=== PATIENT | female | born 1995 | race Caucasian/White ===

== ENCOUNTER 2020-10-06 09:32 | Emergency (ER) | payer OTHER, SELFPAY ==
--- NOTE | ~2020-10-06 | XR_ITS ---
EXAMINATION: XR CHEST CLINICAL INFORMATION: Chest pain COMPARISON: None TECHNIQUE: 2 views of the chest were obtained. FINDINGS: No significant abnormality is noted involving the heart, lungs, mediastinum, bony thorax or soft tissues. XR/XR chest 2V IMPRESSION: Unremarkable examination.
[2020-10-06 09:38] VITALS: BP 146/99; PULSE 130; RESP 18; TEMP 37.2; O2SAT 98; BMI 23.8
--- NOTE | 2020-10-06 10:08 | ECG_ITS ---
Test Reason : DYSPNEA Blood Pressure : / mmHG Vent. Rate : 097 BPM Atrial Rate : 097 BPM P-R Int : 166 ms QRS Dur : 092 ms QT Int : 368 ms P-R-T Axes : 036 041 010 degrees QTc Int : 467 ms Normal sinus rhythm Normal ECG No previous ECGs available Referred By: Shane Paul Electronically Signed By:LUCHO PRESTON MD
--- NOTE | 2020-10-06 10:10 | ED_ITS ---
HPI - General Adult General Chief complaint: Dyspnea Stated complaint: SOB Time Seen by Provider: 10/06/20 09:51 Source: patient Mode of arrival: ambulatory Limitations: no limitations History of Present Illness HPI narrative: 25-year-old female who presents emergency department for evaluation of palpitations, lightheadedness, dizziness, anxiety attack, insomnia. The patient states that she is being treated for anxiety, depression and insomnia. She states that she was on Seroquel 1 month prior, 50 mg at night which helped her anxiety but made her very sleepy. This medication was stopped and she was started another medication which patient could not tolerate. She was started back on Seroquel 12.5 mg which she took 2 days prior. She states that over the past 48 hours she has had palpitations where she states that her heart is racing and she skips beats. She states she is feeling lightheaded, dizzy, she has tingling in her hands and feet. She states she feels like she is going to pass out. She has had nausea and vomiting has not been able to hold down food or fluid for the past 24 hours. She states she has had no sleep over the past 24 hours. She states that she has a constant, pressure-like sensation in her chest, she points to her anterior chest when asked to localize the pain. Pain is moderate intensity. She feels hot and cold. When I was talking to her she states that her vision was going gomes and she felt like she was going to pass out. She states that she has felt like this in the past when she has had panic attacks. Related Data Previous Rx's Medication Instructions Recorded hydroxyzine pamoate [Vistaril] 50 mg PO TID PRN #20 cap 10/06/20 Allergies Allergy/AdvReac Type Severity Reaction Status Date / Time No Known Allergies Allergy Verified 10/06/20 10:07 Review of Systems Review of Systems: Yes all other systems are reviewed and are negative FOR[facility]LY [facility], [facility] Past Medical History FOR[facility], [facility] Narrative: Past medical history: Hypertension, hyperlipidemia, asthma, depression, anxiety, insomnia. Past surgical history: Wrist surgery, bilateral tubal ligation. Social history: The patient is a smoker but she states she stopped 2 days prior. She denies alcohol use. She does smoke marijuana daily. Social History Social History Advance Directives: No Advance Directives Information Provided: No Patient : No Physical Exam Vital Signs: Vital Signs: Last Vital Signs Temp 99 F 10/06/20 09:38 Pulse 90 10/06/20 10:27 Resp 15 10/06/20 10:27 BP 132/83 10/06/20 10:27 Pulse Ox 99 10/06/20 10:27 Body Mass Index 23.8 Const: General: cooperative and anxious Orientation/consciousness: oriented to person and oriented to place Limitations: no limitations HENMT: Head: Yes normal to inspection, Yes normocephalic and Yes atraumatic Ears: external ears normal General nose exam: Normal external nose present Face and sinus: Yes normal facial exam Mouth: Normal oral and palatal mucosa present Throat: Yes posterior oropharynx normal Eyes: Periorbital: periorbital findings normal Eyelids: Yes eyelids normal Conjunctivae: conjunctivae normal Sclerae: sclerae normal Corneas: corneas normal Pupils: Equal, round and reactive pupils present Direct Ophthalmoscopy: normal light reflex Neck: Neck: Yes full ROM, Yes no lymphadenopathy, Yes no meningeal signs, Yes trachea midline and Yes supple Chest: Chest palpation & inspection: normal inspection of the chest and normal palpation of entire chest wall Resp: Effort & Inspection: normal respiratory effort and able to speak in complete sentences Auscultation: clear to auscultation bilaterally Cardio: Rate: tachycardic Rhythm: regular rhythm Heart sounds: S1 normal heart sound present, S2 normal heart sound present and no murmurs GI: Inspection: Yes normal to inspection Palpation (GI): Soft to palpation, nontender, no guarding, not rigid and No hepatosplenomegaly present : General: Yes no CVA tenderness Back/Spine/Pelvis: Back: no CVA tenderness Cervical Spine: normal cervical lordosis Thoracic/Lumbar Spine: thoracic and lumbar spine normal to inspection Skin: Lesions: no lesions Rashes: no rashes Wounds: no wounds Neuro: General: oriented to person, oriented to place and no meningeal signs Cranial nerves: Yes CN's II-XII intact bilaterally and Yes Equal, round and reactive pupils present Cognition (Neuro): normal cognition Motor exam (neuro): 5/5 motor strength present throughout Extrem: General: Yes normal to inspection and Yes full ROM Psych: Appearance: well kempt Mental Status: mental status grossly normal Speech and movement: Normal speech and movement present Affect: Anxious affect present Attitude: cooperative Thought process: Normal thought process present Thought content: Normal thought content present Course Course Course Narrative: 25-year-old female who presents emergency department for evaluation of palpitations, chest pain, anxiety, insomnia, nausea and vomiting. The patient has a provider that is treating her for anxiety, depression and insomnia and she has had recent medication changes over the past month. She was started back on a low dose of Seroquel 12.5 mg at night 2 nights prior and since that time her symptoms have gotten worse and she has developed nausea and vomiting and unable to hold down food or fluid for 24 hours. Vital signs revealed that she was hypertensive and tachycardic with a blood pressure of 146/99 and pulse of 130. She appears to be extremely anxious otherwise exam was unremarkable. I ordered a CBC, CMP, troponin, chest x-ray and EKG. Patient was ordered to get Ativan 2 mg IV for her anxiety and normal saline x1 L. 1254: The patient got minimal improvement with the IV Ativan, she states that just made her sleepy. Patient's laboratory evaluation is unremarkable including a nondetectable high sensitivity troponin and a normal TSH. Chest x-ray was normal. Twelve EKG was normal. Patient's presentation is consistent with acute anxiety/panic attack. I did discuss this with the patient. I told her that she should continue taking his Seroquel and talk to her doctor about gradually increasing this dose. The patient was given a prescription for Vistaril 25 mg every 6 hours as needed for anxiety. She was given printed and verbal instructions on anxiety and discharged home. Medical Decision Making Lab Data Result diagrams: 10/06/20 10:41 10/06/20 10:41 Labs: Lab Results 10/06/20 10/06/20 10/06/20 Range/Units 10:41 10:41 10:41 WBC 10.0 (4.8-10.8) X10*3/uL RBC 4.60 (4.20-5.50) X10*6/uL Hgb 14.5 (12.0-16.0) g/dl Hct 42.2 (37-47) % MCV 91.7 (80-98) fL MCH 31.5 (27.0-33.0) pg MCHC 34.4 (31.0-35.0) g/dl RDW 12.0 (11.0-16.0) % Plt Count 320 (160-400) X10*3/uL MPV 10.1 (9.4-12.3) fL Immature Gran % (Auto) 0.3 (0.0-0.4) % Neut % (Auto) 79.5 H (45-73) % Lymph % (Auto) 12.9 L (20-40) % [place] % (Auto) 6.9 (2-11) % Eos % (Auto) 0.2 (0-4) % Baso % (Auto) 0.2 (0-2) % Lymph # (Auto) 1.3 (1.2-4.9) X10*3/uL [place] # (Auto) 0.7 (0.1-1.2) X10*3/uL Eos # (Auto) 0.0 (0.0-0.4) X10*3/uL Baso # (Auto) 0.0 (0.0-0.2) X10*3/uL Abs Immat Gran (auto) 0.03 (0.00-0.03) X10*3/uL Absolute Neuts (auto) 8.0 (2.0-8.3) X10*3/uL Absolute Nucleated RBC 0.000 (0.0-0.012) X10*3/uL Nucleated RBC % (auto) 0.0 (0.0-0.2) /100WBC Sodium 139 (135-145) mmol/L Potassium 3.4 (3.3-5.1) mmol/L Chloride 107 (96-108) mmol/L Carbon Dioxide 21 L (22-29) mmol/L Anion Gap 14 (12-20) BUN 8 L (9-16) mg/dL Creatinine 0.72 (0.5-1.4) mg/dL Estim Creat Clear Calc 109.8 Estimated GFR > 60 Random Glucose 117 H (60-115) mg/dL Calcium 9.6 (8.4-10.2) mg/dL Total Bilirubin 0.6 (0.0-1.0) mg/dL AST 14 (5-31) U/L ALT 19 (0-31) U/L Alkaline Phosphatase 83 (39-117) U/L Troponin I High Sens < 3.5 (<3.5-17.0) ng/L Total Protein 8.1 H (6.5-8.0) g/dL Albumin 5.0 (3.5-5.0) g/dL TSH (0.32-4.0) uIU/mL 10/06/20 Range/Units 10:41 WBC (4.8-10.8) X10*3/uL RBC (4.20-5.50) X10*6/uL Hgb (12.0-16.0) g/dl Hct (37-47) % MCV (80-98) fL MCH (27.0-33.0) pg MCHC (31.0-35.0) g/dl RDW (11.0-16.0) % Plt Count (160-400) X10*3/uL MPV (9.4-12.3) fL Immature Gran % (Auto) (0.0-0.4) % Neut % (Auto) (45-73) % Lymph % (Auto) (20-40) % [place] % (Auto) (2-11) % Eos % (Auto) (0-4) % Baso % (Auto) (0-2) % Lymph # (Auto) (1.2-4.9) X10*3/uL [place] # (Auto) (0.1-1.2) X10*3/uL Eos # (Auto) (0.0-0.4) X10*3/uL Baso # (Auto) (0.0-0.2) X10*3/uL Abs Immat Gran (auto) (0.00-0.03) X10*3/uL Absolute Neuts (auto) (2.0-8.3) X10*3/uL Absolute Nucleated RBC (0.0-0.012) X10*3/uL Nucleated RBC % (auto) (0.0-0.2) /100WBC Sodium (135-145) mmol/L Potassium (3.3-5.1) mmol/L Chloride (96-108) mmol/L Carbon Dioxide (22-29) mmol/L Anion Gap (12-20) BUN (9-16) mg/dL Creatinine (0.5-1.4) mg/dL Estim Creat Clear Calc Estimated GFR Random Glucose (60-115) mg/dL Calcium (8.4-10.2) mg/dL Total Bilirubin (0.0-1.0) mg/dL AST (5-31) U/L ALT (0-31) U/L Alkaline Phosphatase (39-117) U/L Troponin I High Sens (<3.5-17.0) ng/L Total Protein (6.5-8.0) g/dL Albumin (3.5-5.0) g/dL TSH 0.49 (0.32-4.0) uIU/mL Discharge Plan Discharge Clinical Impression: Palpitation, Panic attack Patient Disposition: Home, Self-Care Instructions: Anxiety (ED) Additional Instructions: We laboratory evaluation was normal. Your EKG was normal. Your chest x-ray was normal as well. Your symptoms are consistent with stress, anxiety and depression. Continue taking her Seroquel and discuss with your provider increasing the dose gradually to a more therapeutic dose. Take Vistaril (hydroxyzine) 50 mg, 1 pill every 6 hours as needed for anxiety. Follow-up with your prescribing provider in 2 days discuss further management of your anxiety. Please return to the emergency department if your symptoms get worse or if you develop any symptoms that are concerning to you. Prescriptions: New hydroxyzine pamoate [Vistaril] 50 mg capsule 50 mg PO TID PRN (Reason: anxiety) Qty: 20 RF: 0
[2020-10-06 10:27] VITALS: BP 132/83; PULSE 90; RESP 15; O2SAT 99
[2020-10-06 10:45] LABS: MANUAL DIFF FLAG NO
[2020-10-06] MEDS: 0.9 % Sodium Chloride 1,000 ML 999 ML IV (10:46)
[2020-10-06] MEDS: LORazepam 2 MG/ML VIAL IVPUSH (10:47)
[2020-10-06 10:48] LABS: Basophils Percent Auto 0.2 % (0-2); Eosinophils Percent Auto 0.2 % (0-4); Hematocrit 42.2 % (37-47); Hemoglobin 14.5 g/dl (12.0-16.0); Imm Gran Abs Auto 0.03 X10*3/uL (0.00-0.03); Imm Gran Pct Auto 0.3 % (0.0-0.4); Lymphocytes Absolute Auto 1.3 X10*3/uL (1.2-4.9); Lymphocytes Percent Auto 12.9 % (20-40); Mean Corpuscular HGB Conc 34.4 g/dl (31.0-35.0); Mean Corpuscular Hemoglobin 31.5 pg (27.0-33.0); Mean Corpuscular Volume 91.7 fL (80-98); Mean Platelet Volume 10.1 fL (9.4-12.3); Monocytes Absolute Auto 0.7 X10*3/uL (0.1-1.2); Monocytes Percent Auto 6.9 % (2-11); Neutrophils Percent Auto 79.5 % (45-73); Platelet Count 320 X10*3/uL (160-400)
[2020-10-06 11:11] LABS: Alanine Aminotransferase 19 U/L (0-31); Alkaline Phosphatase 83 U/L (39-117); Anion Gap 14 (12-20); Aspartate Amino Transferase 14 U/L (5-31); Bilirubin Total 0.6 mg/dL (0.0-1.0); Blood Urea Nitrogen 8 mg/dL (9-16); Calcium 9.6 mg/dL (8.4-10.2); Carbon Dioxide 21 mmol/L (22-29); Chloride 107 mmol/L (96-108); Creatinine Clr Calc Pharmacy 109.8; Estimated Glomerular Filt Rate > 60; Glucose Random 117 mg/dL (60-115); Potassium 3.4 mmol/L (3.3-5.1); Sodium 139 mmol/L (135-145); Total Protein 8.1 g/dL (6.5-8.0)
[2020-10-06 11:14] LABS: Troponin-I High Sensitivity < 3.5 ng/L (<3.5-17.0)
[2020-10-06 11:31] LABS: TSH reflex Free T4 0.49 uIU/mL (0.32-4.0)
[2020-10-06 12:00] VITALS: BP 153/83; PULSE 100; O2SAT 97
== END 2020-10-06 13:20 | disposition home or self-care (01) ==
PROVIDERS: Emergency Provider Emergency Medicine Emergency Medical Services; PCP Internal Medicine
DX: F41.0 Panic disorder [episodic paroxysmal anxiety] (principal); R11.2 Nausea with vomiting, unspecified; G47.00 Insomnia, unspecified; F32.9 Major depressive disorder, single episode, unspecified; Z79.899 Other long term (current) drug therapy
CPT/HCPCS: 36415; 71046; 80053; 84443; 84484; 85025; 93005; 96361; 96374; 99284; J2060

== ENCOUNTER 2020-10-09 14:51 | Emergency (ER) | payer OTHER, SELFPAY ==
[2020-10-09 15:01] VITALS: BP 125/86; PULSE 96; RESP 16; TEMP 36.9; O2SAT 96; BMI 22.6
--- NOTE | 2020-10-09 15:21 | ED_ITS ---
HPI - General Adult General Chief complaint: Skin/Abscess/Foreign Body <TYREL Vann - Last Filed: 10/09/20 15:49> Stated complaint: left leg rash <TYREL Vann Last Filed: 10/09/20 15:49> Time Seen by Provider: 10/09/20 15:06 <TYREL Vann Last Filed: 10/09/20 15:49> Source: patient <TYREL Vann Last Filed: 10/09/20 15:49> Mode of arrival: ambulatory <TYREL Vann Last Filed: 10/09/20 15:49> History of Present Illness HPI narrative: 25-year-old female with multiple psychiatric illnesses presenting to the emergency department with concerns for rash. She states that her psychiatrist has been changing her medications recently. She was initially started on ol anzapine and then switched to Seroquel and now switched to lamotrigine. She has taken a total of 2 doses of lamotrigine 1 yesterday at 15:00 and 1 at 07:00 this morning. Since 13:00 she has noticed a rash to her left leg. She was concerned for Abdelrahman Cleveland syndrome because her psychiatrist told her if she would have a rash it could be due to this. She denies going anywhere, hiking, recent tr malia. She states she has been in her bed. She does admit to having 2 dogs and 2 cats. She has been having episodes of vomiting and diarrhea but attributed to her medication changes otherwise feels okay. She denies fevers. She denies changes in soaps, perfumes, detergents, foods. No one else at home has a similar rash. The rash is not painful or itchy. She did use calamine lotion to see if it would help make the rash go away. <TYREL Vann Last Filed: 10/09/20 15:49> Related Data Home medications: Previous Rx's Medication Instructions Recorded hydroxyzine pamoate [Vistaril] 50 mg PO TID PRN #20 cap 10/06/20 <TYREL Vann Last Filed: 10/09/20 15:49> Allergies/adverse reactions: Allergies Allergy/AdvReac Type Severity Reaction Status Date / Time No Known Allergies Allergy Verified 10/06/20 10:07 <TYREL Vann - Last Filed: 10/09/20 15:49> Review of Systems Constitutional: Constitutional: Denies fever(s) <TYREL Vann - Last Filed: 10/09/20 15:49> Eyes: Eyes: Reports no additional eye complaints <TYREL Vann - Last Filed: 10/09/20 15:49> ENT: Denies nasal congestion and Denies sore throat <TYREL Vann - Last Filed: 10/09/20 15:49> Cardiovascular: Cardiovascular: Denies chest pain and Denies dyspnea <TYREL Vann - Last Filed: 10/09/20 15:49> Respiratory: Respiratory: Denies dyspnea <TYREL Vann - Last Filed: 10/09/20 15:49> Gastrointestinal: Gastrointestinal: Denies abdominal pain, Reports diarrhea and Reports vomiting <TYREL Vann - Last Filed: 10/09/20 15:49> Musculoskeletal: Musculoskeletal: Denies joint swelling <TYREL Vann - Last Filed: 10/09/20 15:49> Integumentary/Breasts: Skin/Breast: Reports rash <TYREL Vann - Last Filed: 10/09/20 15:49> Psychiatric: Psychiatric: Reports anxiety <TYREL Vann - Last Filed: 10/09/20 15:49> Hematologic/Lymphatic: Hematologic/Lymphatic: Denies easy bleeding <TYREL Maier - Last Filed: 10/09/20 15:49> [facility] Past Medical History Medical History: Medical History Asthma Ganglion cyst High cholesterol HTN (hypertension) <TYREL Vann - Last Filed: 10/09/20 15:49> Surgical History: Surgical History (Updated 10/09/20 @ 15:06 by Sharon Hawkins) History of tubal ligation <TYREL Vann - Last Filed: 10/09/20 15:49> Social History Social History: Social History Advance Directives: No Advance Directives Information Provided: No Patient : No <TYREL Vann - Last Filed: 10/09/20 15:49> Physical Exam Vital Signs: Vital Signs: Last Vital Signs Temp 98.4 F 10/09/20 15:01 Pulse 96 10/09/20 15:01 Resp 16 10/09/20 15:01 BP 125/86 10/09/20 15:01 Pulse Ox 96 10/09/20 15:01 Body Mass Index 22.6 <TYREL Vann - Last Filed: 10/09/20 15:49> Vital Signs: Last Vital Signs Temp 98.4 F 10/09/20 15:01 Pulse 96 10/09/20 15:01 Resp 16 10/09/20 15:01 BP 125/86 10/09/20 15:01 Pulse Ox 96 10/09/20 15:01 Body Mass Index 22.6 <Abdelrahman Nelson MD - Last Filed: 11/17/20 08:47> Const: Other: sitting upright , friend at bedside <TYREL Vann - Last Filed: 10/09/20 15:49> Orientation/consciousness: patient oriented x3 <TYREL Vann - Last Filed: 10/09/20 15:49> HENMT: Other: No oral lesions <TYREL Vann - Last Filed: 10/09/20 15:49> Head: Yes atraumatic <TYREL Vann - Last Filed: 10/09/20 15:49> Eyes: Pupils: Equal, round and reactive pupils present <TYREL Vann - Last Filed: 10/09/20 15:49> Neck: Neck: Yes supple <TYREL Vann - Last Filed: 10/09/20 15:49> Resp: Effort & Inspection: normal respiratory effort and able to speak in complete sentences <TYREL Vann - Last Filed: 10/09/20 15:49> Cardio: Rate: regular rate <TYREL Vann - Last Filed: 10/09/20 15:49> GI: Inspection: No distended <TYREL Vann - Last Filed: 10/09/20 15:49> Skin: Other: Eight isolated papules to her left distal tib-fib extending to her left heel, no surrounding erythema, no pus drainage, nontender to touch, no vesicular rash, no petechia, palms are spared, no oral lesions <TYREL Vann - Last Filed: 10/09/20 15:49> Neuro: General: patient oriented x3 <TYREL Vann - Last Filed: 10/09/20 15:49> Cranial nerves: Yes Equal, round and reactive pupils present <TYREL Vann Last Filed: 10/09/20 15:49> Extrem: General: Yes full ROM <TYREL Vann Last Filed: 10/09/20 15:49> Psych: Appearance: grossly normal <TYREL Vann Last Filed: 10/09/20 15:49> Course Course Course Narrative: I have reviewed the chart <Abdelrahman Nelson MD - Last Filed: 11/17/20 08:47> Medical Decision Making [facility] Narrative Medical decision making narrative: 25-year-old female presenting to emergency department with concerns for rash, concern it might be even Cleveland syndrome since she started lamotrigine yesterday Vital stable, nontoxic appearing, hemodynamically stable Rash is not consistent with Kimble-Cleveland syndrome. No meningeal signs. No evidence of zoster. Does not appear herpetic. No surrounding or superimposed cellulitis. Does not appear allergic, no signs of respiratory distress, no wheezing or stridor. Rash is not petechial to suggest underlying liver dysfunction. NO evidence of necrotizing fascitis. Patient does have multiple pets in the house and could be sore and be due to flea bites. No bull's eye rash to suggest Lyme. She has a follow-up appoint with her psychiatrist tomorrow morning. She states if she can get something for her anxiety to get her through tomorrow. She was recently in the ER and prescribed hydroxyzine which I advised her to continue taking. Will not add any additional medications. Return precautions discussed. <TYREL Vann Last Filed: 10/09/20 15:49> Discharge Plan Discharge Clinical Impression: Rash <TYREL Vann - Last Filed: 10/09/20 15:49> Patient Disposition: Home, Self-Care <TYREL Vann - Last Filed: 10/09/20 15:49> Instructions: Acute Rash (ED) <TYREL Vann - Last Filed: 10/09/20 15:49> Additional Instructions: Please follow-up with your psychiatrist as scheduled tomorrow. Please return if the rash worsens, worsening redness, leg swelling, fevers, lesions or rash in your mouth, dizziness, weakness, or any other concerning symptom. Avoid new foods, detergents or soaps. Please check your pants for any ticks or fleas because fleas can also cause a similar rash. Continue your medications as instructed by your psychiatrist. <TYREL Vann - Last Filed: 10/09/20 15:49> Prescriptions: No Action hydroxyzine pamoate [Vistaril] 50 mg capsule 50 mg PO TID PRN (Reason: anxiety) Qty: 20 RF: 0 <TYREL Vann - Last Filed: 10/09/20 15:49> Interventions: ED Discharge Assessment Last Done: 10/09/20 15:31 <TYREL Vann Last Filed: 10/09/20 15:49> Discharge Date/Time: 10/09/20 15:31 <TYREL Vann Last Filed: 10/09/20 15:49>
== END 2020-10-09 15:31 | disposition home or self-care (01) ==
PROVIDERS: Emergency Provider Emergency Medicine; PCP Internal Medicine
DX: R21 Rash and other nonspecific skin eruption (principal); I10 Essential (primary) hypertension; E78.5 Hyperlipidemia, unspecified
CPT/HCPCS: 99282; 99283